=== PATIENT | female | born 1960 | race Caucasian/White ===

== ENCOUNTER 2023-08-21 21:50 | Emergency (ER) | payer OTHER, SELFPAY ==
[2023-08-21 21:52] VITALS: BP 137/85; PULSE 65; RESP 16; TEMP 36.3; O2SAT 98; BMI 26.5
--- NOTE | 2023-08-21 22:24 | ED_ITS ---
HPI - General Adult General Date Seen: 08/21/23 Chief complaint: Chest Pain Stated complaint: left sided chest pain Time Seen by Provider: 08/21/23 22:23 History of Present Illness HPI narrative: This is a 63-year-old female presenting to the ER today for evaluation of left- sided chest pain. She is generally healthy. She does have a history of high blood pressure. She presents to the ER today for evaluation of left upper chest pain. Symptoms began this evening at around 7 or 8:00 p.m. after dinner. She is experiencing a sharp stabbing like pain in her left upper chest. Prior to that she was feeling fine. The pain is worse when she breathes or moves wrong but is not specifically related to inspiration. She is not short of breath. The pain does not really radiate down her arm, up to her jaw bone, through to her back, or down to her abdomen. No cough. No fever. She is having some palpitations. No nausea. No diaphoresis. No dizziness. Incidentally, She fell 3 days ago on Sunday and landed on a hot tub. She apparently did not have any pain that night and was not having much pain yesterday or earlier today.. Since dinner tonight she is having increasing pain on the left side and left upper chest. She denies any new fall today. She does not take any anticoagulants. No recent travel. No swelling in her legs. No family history of coronary disease or DVT/PE. Related Data Previous Rx's Medication Instructions Recorded hydrocodone 5 mg-acetaminophen 325 1 tab PO Q6H PRN pain #10 tabs 08/22/23 mg tablet Allergies Allergy/AdvReac Type Severity Reaction Status Date / Time No Known Drug Allergies Allergy Verified 08/21/23 21:57 [facility] Social History Smoking Status: Never smoker Do you use any of these nicotine containing products: None How often do you have a drink containing alcohol: never How often do you have six or more drinks on one occasion: Never AUDIT-C Alcohol total score: 0 Non-prescribed substance use: denies use service: No Exam Narrative: Exam Narrative: Constitutional: Appears well-developed and well-nourished. Alert. Conversant. Non toxic. HENT: Head: Atraumatic. Nose: Nose normal. Mouth/Throat: Oral mucosa is clear and moist. no trismus. Pharynx normal. Eyes: Conjunctivae normal. EOM normal. Pupils equal, round, and reactive to light. No scleral icterus. Neck: Normal range of motion. Neck supple. No tracheal deviation present. No JVD Cardiovascular: Normal rate, regular rhythm. No gallop. No friction rub. No murmur heard. Symmetric radial and DP/PT artery pulses Pulmonary/Chest: Effort normal. No stridor. No respiratory distress. No wheezes. No rales. No rhonchi . No tenderness. No crepitus. No bruising. Abdominal: Soft. Bowel sounds normal. No distension. No mass. No tenderness. No rebound. No guarding. Musculoskeletal: RUE: Normal range of motion. No tenderness. No deformity LUE: Normal range of motion. No tenderness. No deformity RLE: Normal range of motion. No edema. No tenderness. No deformity LLE: Normal range of motion. No edema. No tenderness. No deformity Neurological: Alert and oriented to person, place, and time. Normal strength. CN II-VII intact. No sensory deficit. GCS eye subscore is 4. GCS verbal subscore is 5. GCS motor subscore is 6. Normal coordination Skin: Skin is warm and dry. No rash noted. No pallor. Normal capillary refill. Psychiatric: Normal mood. Normal affect. Const: Vital Signs, click to edit/add: Vital Signs - 24 hr 08/21/23 21:52 Temperature 97.4 F L Pulse Rate [Right Pulse Oximeter] 65 Respiratory Rate 16 Blood Pressure [Ri ght Upper Arm] 137/85 Pulse Oximetry 98 Oxygen Delivery Me thod Room Air Course Vital Signs Vital signs: Initial Vital Signs Temperature 97.4 F L 08/21/23 21:52 Temperature Source Temporal Artery Scan 08/21/23 21:52 Pulse Rate 65 08/21/23 21:52 Pulse Rhythm Regular 08/21/23 21:52 Respiratory Rate 16 08/21/23 21:52 Blood Pressure 137/85 08/21/23 21:52 Blood Pressure Mean 102 08/21/23 21:52 Blood Pressure Position Sitting 08/21/23 21:52 Pulse Oximetry 98 08/21/23 21:52 Oxygen Delivery Method Room Air 08/21/23 21:52 Vital Signs Temperature 97.4 F L 08/21/23 21:52 Pulse Rate 65 08/21/23 21:52 Respiratory Rate 16 08/21/23 21:52 Blood Pressure 137/85 08/21/23 21:52 Pulse Oximetry 98 08/21/23 21:52 Oxygen Delivery Method Room Air 08/21/23 21:52 Temperature 97.4 F L 08/21/23 21:52 Pulse Rate 65 08/21/23 21:52 Respiratory Rate 16 08/21/23 21:52 Blood Pressure 137/85 08/21/23 21:52 Pulse Oximetry 98 08/21/23 21:52 Oxygen Delivery Method Room Air 08/21/23 21:52 Medications Administered Medications: Discontinued Medications Generic Name Dose Route Start Last Admin Trade Name Parkerq PRN Reason Stop Dose Admin Acetaminophen 1,000 mg 08/22/23 00:32 08/22/23 00:49 Acetaminophen 500 Mg Tablet PO 08/22/23 00:33 1,000 mg ONCE ONE Administration Aspirin 162 mg 08/21/23 22:35 08/21/23 22:54 Aspirin 81 Mg Tab.Chew PO 08/21/23 22:36 162 mg ONCE ONE Administration Medical Decision Making [facility] Narrative Medical decision making narrative: This patient presents to the ER today for evaluation of sharp stabbing left anterior upper chest pain that began this evening.. Differential was broad. No evidence of cardiac dysrhythmia. We considered possible ACS, however workup with EKG and troponin is negative. HEART score is 2. Given time since onset of symptoms, I do not think the patient needs to be admitted for further sets of enzymes. EKG shows no evidence for pericarditis. Clinical presentation not suggestive of myocarditis. Mediastinum is normal on the CT. The patient has no ripping or tearing pain through to the back and has symmetric pulses on exam, no other acute neuro findings so I doubt aortic dissection. Risk of radiation and contrast exposure would outweigh the benefit of CT angiogram. We considered PE for this patient. CT PA shows no evidence for PE Primary concern for her chest pain would be possible rib fracture related to her fall in the hot tub 2 days ago. However she was not really having much or any pain after the fall, until this evening. Due to the poor sensitivity of plain films we did do a chest CT. This does confirm a isolated left 7th rib fracture. Along with this there is a very small left-sided pleural effusion which is presumably a tiny hemothorax. No evidence for pneumothorax. Her pain is controlled after ibuprofen at home and Tylenol here in the ER. No respiratory distress. No hypoxia. Breathing easily. We did obtain chest x-ray after CT scan to see if the fracture or the hemothorax or even visible on plain films and to obtain a baseline for comparison an outpatient follow-up chest x-rays. Chest x-ray shows no evidence for pneumonia, pneumothorax, pulmonary edema, visible rib fracture, cardiomegaly. The chest x- ray does show a very small pleural effusion only notable on the lateral film. She will need outpatient follow-up within 2-3 days for repeat imaging for comparison to make sure that the hemothorax is resolving and not enlarging. No wheezing or bronchospasm to suggest COPD/asthma. With reasonable clinical confidence, I think the patient is safe for outpatient follow up. Discussed return precautions. Questions answered. Patient voices comfort with the plan. She feels like she will be able to adequately manage her pain with Tylenol and ibuprofen. We will provide a prescription for hydrocodone that she says she likely will not fill. Opiate precautions and sedation precautions reviewed. Lab Data Labs: Lab Results 08/21/23 Range/Units 22:38 WBC 9.29 (4.50-11.00) K/uL RBC 4.40 (4.00-5.20) m/uL Hgb 14.1 (12.0-16.0) gm/dL Hct 41.4 (33.0-51.0) % MCV 94 (80-100) fL MCH 32 (26-34) pg MCHC 34 (32-36) gm/dL RDW Coeff of Fadumo 12.9 (11.5-15.5) % Plt Count 236 (140-440) K/uL Neut % (Auto) 56.9 (42.0-72.0) % Lymph % (Auto) 28.8 (20-44) % [place] % (Auto) 8.0 (0.0-11.0) % Eos % (Auto) 5.1 (0.0-7.0) % Baso % (Auto) 0.3 (0.0-3.0) % Neut # (Auto) 5.29 (1.7-7.0) K/uL Lymph # (Auto) 2.68 (0.90-2.90) K/uL [place]ks # (Auto) 0.70 (0.00-0.90) K/UL Eos # (Auto) 0.47 (0.00-0.50) K/uL Baso # (Auto) 0.03 (0.00-0.30) K/uL Abs Immat Gran (auto) 0.08 (0.00-0.30) K/uL Imm/Tot Granulo (auto) 0.9 % Sodium 138 (135-149) mmol/L Potassium 3.1 L (3.6-5.1) mmol/L Chloride 103 (96-114) mmol/L Carbon Dioxide 28 (20-32) mmol/L Anion Gap 7 (7-15) mEq/L BUN 18 (7-30) mg/dL Creatinine 0.7 (0.5-1.5) mg/dL Estimated Creat Clear 46.73 Estimated GFR 98 ml/min Glucose 104 (60-115) mg/dL Calcium 9.0 (8.4-10.6) mg/dL Troponin I 0.02 (0.01-0.04) ng/mL Imaging Data CT scan - chest: Attestation: I have reviewed the pertinent imaging results. Radiologist's impression: IMPRESSION: 1. Acute mildly displaced left 7th rib fracture laterally with a small left- sided pleural, probably a hemothorax. No pneumothorax.. 2. No pulmonary embolus or CT evidence of right heart strain. Discharge Plan Discharge Clinical Impression: Closed rib fracture, Hemothorax, left Patient Disposition: Home, Self-Care Condition: Stable Instructions: Rib Fracture (ED) Additional Instructions: As we discussed, your CT scan confirms that you have a fracture of your left 7th rib. He will also have a very small collection of blood around your left lung (insight to rib cage) called a hemothorax. He has injury should heal on their own and you will not likely need a chest tube or any chest surgery. However if you have worsening pain, worsening trouble breathing, lightheadedness or dizziness, or any problems, you should come back to the ER right away to be rechecked. Even if you are doing well, you should recheck with her doctors at the [facility] clinic within 2-3 days for a follow-up chest x-ray. Use Tylenol or ibuprofen if needed for pain. Use the prescription pain [id number] needed for uncontrolled pain. Use caution with hydrocodone because it can cause drowsiness, dizziness, constipation, and can be addictive. Do not drive for 6 hours after you take hydrocodone. Prescriptions: New hydrocodone-acetaminophen 5-325 mg tablet 1 tab PO Q6H PRN (Reason: pain) Qty: 10 0RF Follow Up/Referrals: Casi Pelaez MD [Primary Care Provider] - Stand Alone Forms: [employer] Info Instructions
--- NOTE | 2023-08-21 22:37 | CT_ITS ---
Patient: JOSHUA DELA CRUZ Facility:?[facility] Patient ID:?[id number] Site Patient ID:?[id number]. Site :?[id number] Study:?CT-Chest PE W/ISOVUE 370 95CC-08/22/2023 12:04:07 AM Ordering Physician:SHAYE Final Report: INDICATION: Dyspnea. Chest pain. TECHNIQUE: Multiplanar CT pulmonary angiogram was performed after the administration of 100 mL of Omnipaque 350 intravenous contrast. COMPARISON: None. FINDINGS: Lower neck: The visualized thyroid is unremarkable. Cardiovascular: Contrast opacification of the pulmonary arterial tree is adequate. Heart size is normal. Thoracic aorta and pulmonary artery are normal in caliber. No significant atherosclerotic calcifications of the aortic arch. No significant coronary arterial calcifications. No pulmonary embolus. Mediastinum and lymph nodes: Unremarkable. No pathologic mediastinal or hilar lymphadenopathy by size criteria. Lungs: No focal consolidation. Mild pulmonary vascular congestion. Dependent atelectasis. Linear bandlike opacification of the lung bases bilaterally, likely subsegmental atelectasis and/or scarring. Airways: The trachea remains patent and midline. Mild diffuse peribronchial wall thickening. Pleura: Trace left-sided pleural effusion. No pneumothorax. Chest wall: Unremarkable. Prominent axillary lymph nodes that do not meet size criteria for lymphadenopathy. Bones: Acute displaced left 7th rib fracture laterally (7:27 and 5:128). Mild degenerative changes of the thoracic spine. Upper abdomen: Unremarkable. No reflux of contrast material into the IVC. IMPRESSION: 1. Acute mildly displaced left 7th rib fracture laterally with a small left- sided pleural, probably a hemothorax. No pneumothorax.. 2. No pulmonary embolus or CT evidence of right heart strain. Please note that all CT scans at this facility use dose modulation, iterative reconstruction, and/or weight-based dosing when appropriate to reduce radiation dose to as low as reasonably achievable. Dictated by Shoaib Castillo MD @ 08/22/2023 12:23:34 AM Signed by:?Shoaib Castillo MD @08/22/2023 12:23:34 AM (Electronic Signature)
[2023-08-21] MEDS: ASPIRIN 81 MG TAB.CHEW 162 MG PO (22:54)
[2023-08-21 23:10] LABS: Basophils Absolute Auto 0.03 K/uL (0.00-0.30); Basophils Percent Auto 0.3 % (0.0-3.0); Eosinophils Absolute Auto 0.47 K/uL (0.00-0.50); Eosinophils Percent Auto 5.1 % (0.0-7.0); Hematocrit 41.4 % (33.0-51.0); Hemoglobin* 14.1 gm/dL (12.0-16.0); Immature Granulocytes Abs Auto 0.08 K/uL (0.00-0.30); Immature Granulocytes Pct Auto 0.9 %; Lymphocytes Absolute Auto 2.68 K/uL (0.90-2.90); Lymphocytes Percent Auto 28.8 % (20-44); Mean Corpuscular HGB Conc 34 gm/dL (32-36); Mean Corpuscular Hemoglobin 32 pg (26-34); Mean Corpuscular Volume 94 fL (80-100); Neutrophils Absolute Auto 5.29 K/uL (1.7-7.0); Neutrophils Percent Auto 56.9 % (42.0-72.0); Platelet Count* 236 K/uL (140-440); RDW Coefficient of Variation % 12.9 % (11.5-15.5); White Blood Count* 9.29 K/uL (4.50-11.00)
[2023-08-21 23:16] LABS: Slide Review Reflex No
[2023-08-21 23:38] LABS: Anion Gap 7 mEq/L (7-15); Blood Urea Nitrogen* 18 mg/dL (7-30); Carbon Dioxide* 28 mmol/L (20-32); Chloride* 103 mmol/L (96-114); Creatinine* 0.7 mg/dL (0.5-1.5); Est. Creatinine Clearance* 46.73; Estimated Glomerular Filt Rate 98 ml/min; Glucose* 104 mg/dL (60-115); Potassium* 3.1 mmol/L (3.6-5.1); Sodium* 138 mmol/L (135-149); Troponin I* 0.02 ng/mL (0.01-0.04)
[2023-08-22] MEDS: ACETAMINOPHEN 500 MG TABLET 1000 MG PO (00:49)
--- NOTE | 2023-08-22 00:51 | XR_ITS ---
Patient: JOSHUA DELA CRUZ Facility:?[facility] Patient ID:?[id number] Site Patient ID:?[id number]. Site :?[id number] Study:?XRay-Chest 2 VIEW-08/22/2023 1:22:50 AM Ordering Physician:SHAYE Final Report: INDICATION: Left chest pain, fall, hemothorax. Fall on Sunday08/18/2023. TECHNIQUE: Chest 2 view. COMPARISON: CT chest 08/21/2023. FINDINGS: Low lung volumes with bibasilar atelectasis. Tiny left pleural effusion. No pneumothorax identified. Heart size and pulmonary vasculature are within normal limits. The known left 7th rib fracture is better seen on prior CT. No other acute osseous abnormality identified. IMPRESSION: 1. Tiny left pleural effusion and bibasilar atelectasis. 2. The known left 7th rib fracture is better seen on prior CT. Dictated by Anette Mahan MD @ 08/22/2023 1:37:30 AM Signed by:?Anette Mahan MD @08/22/2023 1:37:30 AM (Electronic Signature)
== END 2023-08-22 01:46 | disposition home or self-care (01) ==
PROVIDERS: Emergency Provider Emergency Medicine; PCP Family Medicine
DX: S22.32XA Fracture of one rib, left side, initial encounter for closed fracture (principal); J94.2 Hemothorax
CPT/HCPCS: 36415; 71046; 71275; 80048; 84484; 85025; 99283; 99284; A9270; Q9967